=== PATIENT | female | born 1975 | race Caucasian/White ===

== ENCOUNTER 2019-01-16 07:46 | Outpatient (CLI) | payer OTHER ==
[~2019-01-16] VITALS: Ht 167.6 cm; Wt 73.9 kg
[2019-01-16 09:04] LABS: HEMATOCRIT 41.7 % (37.0-47.0); HEMOGLOBIN 13.9 g/dl (12.5-16.0); MEAN CELL VOLUME 89 fl (80.0-100.0); MEAN CORPUSCULAR HEMOGLOBIN 30 pg (27.0-31.0); MEAN CORPUSCULAR HGB CONC 33 g/dl (33.0-37.0); PLATELET COUNT 197 K/mm3 (130-400); RED BLOOD COUNT 4.67 M/mm3 (4.10-5.30)
[2019-01-16 09:12] LABS: CALCIUM 9.4 mg/dL (8.4-10.2); CREATININE, serum 0.65 (0.52-1.25); POTASSIUM 3.9 mmol/L (3.4-5.0)
[2019-01-16 09:30] LABS: PROTHROMBIN TIME 10.9 SECONDS (9.7-12.8)
[2019-01-16 09:31] VITALS: BP 108/52; PULSE 49; TEMP 98.1
[2019-01-16] MEDS ORDERED: no home meds (10:03)
[2019-01-16 10:40] VITALS: BP 107/65; PULSE 54
[2019-01-16 10:58] VITALS: BP 109/65; PULSE 52
[2019-01-16 11:07] VITALS: BP 101/63; PULSE 54
[2019-01-16 11:25] VITALS: BP 111/63; PULSE 49
--- NOTE | 2019-01-16 11:30 | NUR ---
Discharge instructions given to pt.Pt verblizes understanding.INT removed,catheter tip intact.
--- NOTE | 2019-01-16 11:40 | NUR ---
Pt escorted out by this nurse
== END 2019-01-16 12:36 | disposition home or self-care (01) ==
LOC: COL.RAD 07:46
PROVIDERS: Internal Medicine Cardiovascular Disease
DX: R00.1 Bradycardia, unspecified (principal)
CPT/HCPCS: J2250; J2704; J7120

== ENCOUNTER → 2019-04-29 | Outpatient (CLI) | payer OTHER ==
[~2019-04-29] MED LIST: no home meds
== END ==
LOC: COL.RAD 04-12 08:15
DX: S73.192A Other sprain of left hip, initial encounter (principal)
CPT/HCPCS: A9585; J3301; Q9967